=== PATIENT | female | born 1950 | race Caucasian/White ===

== ENCOUNTER 2016-06-26 10:02 | Emergency (ER) | payer MEDICARE, OTHER ==
[~2016-06-26 10:02] MED LIST: ACIDOPHILUS PO; CALTRA600D PO; CRESTOR20 MG PO; ESTRATEST PO; FISH-EPA1000 MG PO; METPAKSF PO; PRILO PO; PRINZIDE1 TAB PO; SYN88 PO; ZYRTEC ALLGY10 MG PO
== END 2016-06-26 17:14 | disposition home or self-care (01) ==
LOC: ER 10:02
DX: H10.12 Acute atopic conjunctivitis, left eye (principal); J45.909 Unspecified asthma, uncomplicated; I10 Essential (primary) hypertension; K21.9 Gastro-esophageal reflux disease without esophagitis; Z88.1 Allergy status to other antibiotic agents; Z88.8 Allergy status to other drugs, medicaments and biological substances; Z88.2 Allergy status to sulfonamides; Z79.899 Other long term (current) drug therapy
CPT/HCPCS: 99283